=== PATIENT | male | born 1950 | race American Indian/Alaskan Native ===

== ENCOUNTER 2019-08-04 20:20 | Emergency (ER) | payer OTHER, MEDICARE ==
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
[2019-08-04 20:32] VITALS: BP 179/83
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
[2019-08-04] MEDS ORDERED: HYDROcodone/ACETAMINOPHEN 5-325 MG TAB PO ONE (22:10)
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
== END 2019-08-05 00:07 | disposition home or self-care (01) ==
LOC: ED 20:20
DX: S16.1XXA Strain of muscle, fascia and tendon at neck level, initial encounter (principal); M79.605 Pain in left leg; I10 Essential (primary) hypertension; E11.9 Type 2 diabetes mellitus without complications; V49.49XA Driver injured in collision with other motor vehicles in traffic accident, initial encounter; Y93.89 Activity, other specified; Y92.488 Other paved roadways as the place of occurrence of the external cause; Y99.8 Other external cause status
CPT/HCPCS: 72040; 72125